=== PATIENT | male | born 1955 | race Caucasian/White ===

== ENCOUNTER 2020-10-18 11:02 | Inpatient (IN) ==
[2020-10-18] MEDS ORDERED: *HR* Midazolam HCl 2 MG/2 ML VIAL ONE (11:12)
[2020-10-18] MEDS ORDERED: *HR* Propofol 200 MG/20 ML VIAL IVP ONE (11:12)
[2020-10-18] MEDS ORDERED: *HR* FentaNYL (PF) 100 MCG/2 ML VIAL ONE (11:12)
[2020-10-18] MEDS ORDERED: Ondansetron 4 MG/2 ML VIAL ONE (11:14)
[2020-10-18] MEDS ORDERED: *HR* Rocuronium Bromide 50 MG/5 ML VIAL ONE ×2 (11:14→13:59)
[2020-10-18] MEDS ORDERED: Lidocaine HCL 4 ML Topical Solution (Laryng-O-Jet Kit Sterile Pak) TP ONE (11:14)
[2020-10-18] MEDS ORDERED: Lidocaine -MPF 2% 2 ML VIAL ONE (11:14)
[2020-10-18] MEDS ORDERED: MetroNIDAZOLE 500 MG/100 ML 500 MG/100 ML BAG IVPB ONE (11:33)
[2020-10-18] MEDS ORDERED: Ringers Solution, Lactated 1,000 ML IVC SCH (11:45)
[2020-10-18] MEDS ORDERED: CeFAZolin Syr 2,000MG/20 ML 2,000 MG/20 ML SYRINGE IVPB ONE (11:47)
[2020-10-18] MEDS ORDERED: Acetaminophen IV 1,000 MG/100 ML BAG IVPB ONE (12:14)
[2020-10-18] MEDS ORDERED: Famotidine 20 MG/2 ML VIAL ONE (12:18)
[2020-10-18] MEDS ORDERED: *HR* HYDROMORPHONE 2 MG/ML VIAL ONE ×2 (12:59→14:46)
[2020-10-18] MEDS ORDERED: Sugammadex Sodium 200 MG/2 ML VIAL IV ONE (13:25)
[2020-10-18] MEDS ORDERED: *HR* Magnesium Sulfate 1 GM/2 ML VIAL ONE (14:13)
[2020-10-18] MEDS ORDERED: *HR* Metoprolol 5 MG/5 ML VIAL IVP PRN (15:56)
[2020-10-18] MEDS ORDERED: Ondansetron 4 MG/2 ML VIAL IVP PRN (15:56)
[2020-10-18] MEDS ORDERED: Ibuprofen 600 MG TABLET PO PRN (15:56)
[2020-10-18] MEDS ORDERED: Melatonin 3 MG TABLET PO PRN (15:56)
[2020-10-18] MEDS: 0.9 % Sodium Chloride 1,000 ML IVC SCH (18:21)
[2020-10-18] MEDS: Budesonide/Formoterol 160/4.5 1 PUFF INH IH SCH (21:29)
[2020-10-19] MEDS: Budesonide/Formoterol 160/4.5 1 PUFF INH IH SCH ×2 (07:36→19:20)
[2020-10-19] MEDS: 0.9 % Sodium Chloride 1,000 ML IVC SCH (09:55)
[2020-10-20] MEDS: 0.9 % Sodium Chloride 1,000 ML IVC SCH ×2 (03:21→12:26)
[2020-10-20] MEDS: Budesonide/Formoterol 160/4.5 1 PUFF INH IH SCH (07:39)
[2020-10-20] MEDS: *HR* OxyCODONE/APAP 10/325 TABLET PO PRN (17:11)
[2020-10-20] MEDS: *HR* OxyCODONE Immed Rel 5 MG TABLET PO PRN (17:32)
[2020-10-20] MEDS ORDERED: Oxycodone Myristate [Xtampza Er] 36 MG PO SCH (21:00)
[2020-10-21] MEDS: *HR* OxyCODONE Immed Rel 5 MG TABLET PO PRN ×2 (01:12→07:55)
[2020-10-21] MEDS: *HR* OxyCODONE/APAP 10/325 TABLET PO PRN (05:15)
[2020-10-21 06:18] VITALS: BP 148/80; PULSE 80; TEMP 98.1; O2SAT 90
== END 2020-10-21 15:43 | disposition home or self-care (01) | DRG 346 ==
LOC: SAMDAY 11:02 → 3ANU 15:55
PROVIDERS: ADMIT Surgery; ATTEND Surgery